=== PATIENT | female | born 2005 | race Caucasian/White ===

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

== ENCOUNTER 2025-04-04 13:56 | Emergency (ER) | payer OTHER, SELFPAY ==
[2025-04-04 14:11] VITALS: BP 133/84; PULSE 97; RESP 16; TEMP 36.9; O2SAT 98
[2025-04-04 14:23] LABS: EDCOVIDSCREEN Negative (Negative); EDINFLUASCREEN Negative (Negative); EDINFLUBSCREEN Negative (Negative); EDSTREPNEGPOS1 Negative (Negative)
--- NOTE | 2025-04-04 14:23 | ED.URI ---
HPI - URI/Sore Throat General Chief Complaint: Upper Respiratory Infection Stated Complaint: Strep Symptoms Time Seen by Provider: 04/04/25 14:19 Source: patient and RN notes reviewed Mode of arrival: ambulatory Limitations: no limitations History of Present Illness HPI Narrative: 19-year-old female patient presents today with a 2 day history of sore throat, nasal congestion, body aches, sweats and chills. Denies fever shortness of breath. She has been taking DayQuil and NyQuil with mild relief. Currently rates her pain 5/10. Related Data Home Medications ?Medication ?Instructions ?Recorded ?Confirmed ?Last Taken ?Type drospirenone 3 mg-ethinyl 1 tablet PO DAILY 07/20/22 11/27/24 Unknown History estradiol 0.02 mg tablet metformin 500 mg tablet,extended 500 mg PO BID 07/20/22 04/04/25 Unknown History release 24 hr bupropion HCl 300 mg 24 hr tablet, 300 mg PO DAILY 04/04/25 04/04/25 Unknown History extended release drospirenone 3 mg-ethinyl tablet 04/04/25 Unknown History estradiol 0.03 mg tablet (Zumandimine (28)) Allergies Allergy/AdvReac Type Severity Reaction Status Date / Time bee stings AdvReac Unknown Swelling Uncoded 11/27/24 10:25 [facility] Past Medical History Medical History Depression Anxiety Social History Social History Smoking status: Never smoker Comments At time of signature, I have reviewed and agree with nursing past medical, surgical, social and family history unless otherwise noted. Please see nursing chart for further information. There is no relevant family history pertinent to the presenting complaint Exam Narrative: GENERAL: Mildly ill-appearing, well-nourished, and in no acute distress. HEAD: Normocephalic, atraumatic. EYES: EOMI. No redness or drainage. Conjunctivae normal. ENT: Mucous membranes pink and moist. Nares clear. No rhinorrhea. TMs normal bilaterally. Throat normal. Uvula midline. NECK: Normal AROM. Supple. No lymphadenopathy. CHEST: No respiratory distress. Clear to auscultation. HEART: Regular rate and rhythm. No murmur appreciated. EXTREMITIES: Normal range of motion. No edema. SKIN: Warm, dry, no rash. Capillary refill normal. Normal skin turgor. NEURO: No focal deficits. Alert and oriented x3. Gait steady. PSYCH: Normal affect. No signs of depression or anxiety. Course Course Level of Care: Express Care Visit Vital Signs Vital signs: Vital Signs Temperature 98.4 F 04/04/25 14:11 Pulse Rate 97 04/04/25 14:11 Respiratory Rate 16 04/04/25 14:11 Blood Pressure 133/84 04/04/25 14:11 Pulse Oximetry 98 04/04/25 14:11 Temperature 98.4 F 04/04/25 14:11 Pulse Rate 97 04/04/25 14:11 Respiratory Rate 16 04/04/25 14:11 Blood Pressure 133/84 04/04/25 14:11 Pulse Oximetry 98 04/04/25 14:11 Reviewed MDM - URI/Sore Throat MDM Narrative Medical decision making narrative: 19-year-old female patient presents today with a 2 day history of sore throat, nasal congestion, body aches, sweats and chills. Denies fever shortness of breath. She has been taking DayQuil and NyQuil with mild relief. Currently rates her pain 5/10. Patient is mildly ill appearing, but physical exam is otherwise negative. Influenza, COVID-19, and rapid strep negative. Culture pending. Symptoms likely viral in etiology. Discussed [id number] medication use and duration of illness. No prescription medications indicated at this time. Anticipatory guidance given. Vital signs stable. Differential Diagnosis Differential diagnosis: Likely upper respiratory infection, viral infection, influenza, pharyngitis and other (Strep throat, COVID) Lab Data Attestation: I reviewed the patient's lab results. Labs: Lab Results 04/04/25 Range/Units 14:21 POC Influenza A Ag Negative (Negative) POC Influenza B Ag Negative (Negative) POC SARS CoV-2 Ag Negative (Negative) POC Grp A Strep Screen Negative (Negative) Critical Care Time Critical Care Time Critical Care Time: No Discharge Plan Discharge Clinical Impression: Viral syndrome Patient Disposition: Home Condition: Stable Instructions: Viral Syndrome (ED) Additional Instructions: Your influenza, COVID-19, and rapid strep swab or negative today at [facility]. You will be notified in a few days if the culture comes back positive for strep, and appropriate antibiotics will be called in for you at that time. Your symptoms are likely due to a viral illness, which is not treated with antibiotics. Viral symptoms can be present for up to 7-10 days. Take Tylenol or ibuprofen for fever or pain. Rest and stay hydrated. Follow up with your PCP in 7 days if symptoms are not improving. Go to the ER immediately if you have any difficulty breathing or swallowing. Patient Language: Kiswahili Prescriptions: No Action metformin 500 mg tablet extended release 24 hr 500 mg PO BID drospirenone-ethinyl estradiol 3-0.02 mg tablet 1 tablet PO DAILY bupropion HCl 300 mg tablet extended release 24 hr 300 mg PO DAILY drospirenone-ethinyl estradiol [Zumandimine (28)] 3-0.03 mg tablet trazodone 50 mg tablet 50 mg PO QHS PRN (Reason: insomnia) Qty: 30 3RF ergocalciferol (vitamin D2) 1,250 mcg (50,000 unit) capsule 1,250 mcg PO WEEKLY Qty: 14 2RF topiramate 100 mg tablet 100 mg PO BID Qty: 60 5RF sumatriptan succinate 25 mg tablet See Rx Instructions PO .COMPLEX Qty: 9 0RF Rx Instructions: take 1 tab at onset of headache; if no relief may repeat 1 tab after at least 2 hrs; max = 4 tabs/24 hr PO Follow-up/Referrals: Padmini Tucker, LEAD NURSE, CARDIOPULMONARY TECHNICIAN-C [Primary Care Provider, Family Practice] Stand Alone Forms: Work/School Release IP Time of Disposition: 14:28
== END 2025-04-04 14:34 | disposition home or self-care (01) ==
PROVIDERS: Emergency Provider Nurse Practitioner; PCP Nurse Practitioner Family
DX: B34.9 Viral infection, unspecified (principal); Z20.822 Contact with and (suspected) exposure to COVID-19; F41.9 Anxiety disorder, unspecified; F32.A Depression, unspecified
CPT/HCPCS: 87081; 87426; 87804; 87880; 99213; G0463